=== PATIENT | female | born 1990 | race Caucasian/White ===

== ENCOUNTER → 2019-09-14 | Outpatient (REF) | payer OTHER ==
[2019-09-14 17:57] LABS: BASO # 0.1 10^3/uL (0.0-0.2); BASO % 0.6 % (0.0-1.0); EOS # 0.1 10^3/uL (0.0-0.5); EOS % 1.4 % (0.0-3.0); HEMATOCRIT 47.6 % (36.0-47.0); HEMOGLOBIN 15.1 g/dl (12.0-15.5); LYMPH # 2.8 10^3/uL (1.5-5.0); LYMPH % 28.2 % (24.0-44.0); MEAN CORPUSCULAR HEMOGLOBIN 28.7 pg (27.0-33.0); MEAN CORPUSCULAR HGB CONC 31.7 g/dl (32.0-36.5); MEAN CORPUSCULAR VOLUME 90.5 fl (80.0-96.0); MONO # 0.6 10^3/uL (0.0-0.8); MONO % 6.2 % (0.0-5.0); NEUTROPHILS # 6.2 10^3/uL (1.5-8.5); NEUTROPHILS % 63.1 % (36.0-66.0); PLATELET COUNT, AUTOMATED 300 10^3/uL (150-450); RED BLOOD COUNT 5.26 10^6/uL (4.00-5.40); WHITE BLOOD COUNT 9.9 10^3/uL (4.0-10.0)
[2019-09-14 18:08] LABS: ALBUMIN 3.6 GM/DL (3.2-5.2); ALT/SGPT 28 U/L (12-78); BILIRUBIN,TOTAL 0.4 MG/DL (0.2-1.0); BLOOD UREA NITROGEN 8 MG/DL (7-18); CALCIUM LEVEL 8.4 MG/DL (8.5-10.1); CARBON DIOXIDE LEVEL 27 MEQ/L (21-32); CHLORIDE LEVEL 106 MEQ/L (98-107); CHOLESTEROL LEVEL 147 MG/DL (<200); CHOLESTEROL RISK RATIO 3.972 (<5); CREATININE FOR GFR 0.66 MG/DL (0.55-1.30); FREE T4 0.98 NG/DL (0.76-1.46); GLOMERULAR FILTRATION RATE > 60.0 (>60); GLUCOSE, FASTING 89 MG/DL (70-100); HDL CHOLESTEROL 37 MG/DL (>40); LDL CHOLESTEROL 85 MG/DL (<100); NON-HDL-C 110 MG/DL; POTASSIUM SERUM 4.2 MEQ/L (3.5-5.1); SODIUM LEVEL 138 MEQ/L (136-145); TOTAL 25(OH) VITAMIN D 11.4 NG/ML (30.0-100.0); TOTAL PROTEIN 7.2 GM/DL (6.4-8.2); TRIGLYCERIDES LEVEL 126 MG/DL (<150)
== END ==
LOC: M LAB REF 16:31
PROVIDERS: ATTEND Physician Assistant
DX: Z00.00 Encounter for general adult medical examination without abnormal findings (principal); Z13.9 Encounter for screening, unspecified; F17.200 Nicotine dependence, unspecified, uncomplicated; Z68.33 Body mass index [BMI] 33.0-33.9, adult; E66.09 Other obesity due to excess calories; F41.8 Other specified anxiety disorders

== ENCOUNTER 2019-10-19 11:50 | Day surgery (SDC) | payer OTHER ==
[~2019-10-19] VITALS: Ht 170.2 cm; Wt 96.1 kg
[~2019-10-19 11:50] MED LIST: ESCI10TA2 PO; LIDOCAINE 1% MDV 20ML VIAL SQ PRN; LR 1,000 ML IV ONE; VARE05TA PO
[2019-10-19] MEDS ORDERED: propofoL 200 MG/20 ML VIAL As Ordered ONE (14:59)
[2019-10-19] MEDS ORDERED: SUGAMMADEX SODIUM 500 MG/5 ML VIAL (BRIDION) As Ordered ONE (14:59)
[2019-10-19] MEDS ORDERED: fentaNYL 100 MCG/2 ML INJECTION (J3010) As Ordered ONE (14:59)
[2019-10-19] MEDS ORDERED: ePHEDrine SULFATE 25 MG/5 ML(5MG/ML) SYRINGE As Ordered ONE (14:59)
[2019-10-19] MEDS ORDERED: ACETAMINOPHEN 1000MG 100ML IV BTL (OFIRMEV) (J0131 PER 10MG) As Ordered ONE (14:59)
[2019-10-19] MEDS ORDERED: ONDANSETRON 4MG/2ML VIAL (J2405) As Ordered ONE (14:59)
[2019-10-19] MEDS ORDERED: PHENYLephrine HCL 500 MCG/5 ML (100MCG/ML) SYRINGE (J2370) As Ordered ONE (14:59)
[2019-10-19] MEDS ORDERED: dexameTHASONE 4 MG/ML 1ML VIAL (J1100) As Ordered ONE (14:59)
[2019-10-19] MEDS ORDERED: ROCURONIUM BROMIDE 50 MG/5 ML VIAL As Ordered ONE ×2 (14:59→16:19)
[2019-10-19] MEDS ORDERED: MIDAZOLAM INJ 2 MG/2 ML VIAL (J2250) As Ordered ONE (14:59)
[2019-10-19] MEDS ORDERED: LIDOCAINE 2% INJ 100 MG/5 ML SDV (FOR ANES.) As Ordered ONE (14:59)
[2019-10-19] MEDS ORDERED: HYDROmorphone HCL 2 MG/ML 1ML VIAL (J1170) As Ordered ONE (16:00)
[2019-10-19] MEDS ORDERED: ESMOLOL INJ 100MG/10ML VIAL As Ordered ONE (16:05)
[2019-10-19] MEDS ORDERED: KETOROLAC 60 MG/2 ML VIAL (J1885) As Ordered ONE (16:19)
[2019-10-19] MEDS ORDERED: GLYCOPYRROLATE INJ 0.2 MG/ML 2 ML VIAL As Ordered ONE (17:09)
[2019-10-19] MEDS ORDERED: IBUPROFEN 600 MG TAB PO PRN (18:00)
[2019-10-19] MEDS ORDERED: PERCOCET 5MG/325MG TAB PO PRN (18:00)
[2019-10-19] MEDS ORDERED: LR 1,000 ML IV SCH ×2 (18:00)
[2019-10-19] MEDS ORDERED: fentaNYL 100 MCG/2 ML INJECTION (J3010) IV PRN (18:00)
[2019-10-19] MEDS ORDERED: NORCO, ANEXSIA 5/325MG TABLET (HYDROcodone/ACETAMINOPHEN) PO PRN (18:00)
[2019-10-19] MEDS ORDERED: ONDANSETRON 4MG/2ML VIAL (J2405) IV PRN (18:00)
--- NOTE | 2019-10-20 07:28 | RO ---
DATE OF PROCEDURE: 10/19/2019 PREOPERATIVE DIAGNOSIS: Pain, bleeding, desire for permanent sterilization by bilateral salpingectomy. POSTOPERATIVE DIAGNOSIS: Pain, bleeding, desire for permanent sterilization by bilateral salpingectomy. PROCEDURE: SURGEON: Dr. Allie Jones VISUAL EDUCATION DIRECTOR: None. ANESTHESIA: General endotracheal anesthesia. BRIEF DESCRIPTION OF PROCEDURE AND FINDINGS: Josi was brought to the operating room where sufficient general endotracheal anesthesia was induced and she was prepped, draped and positioned in the usual sterile fashion where the uterine manipulator was placed. The uterus was sounded to 9 with an endocervical cavity length of 4 giving an endometrial cavity length of 5 and that is the only measurement we had at this point, length of 5, but we subsequently measured width at 4.4, but again did not have this yet. Placed the uterine manipulator carefully with efforts made not to perforate the uterus and of course drain the bladder and then turned our attention to the abdomen. A transverse semilunar incision was made below the umbilicus with sharp and blunt dissection and were continued to the subcutaneous tissues to the level of the rectus fascia, which was transversely incised and secured with #0 Vicryl retention sutures. The peritoneum was entered under direct visualization and the Martins cannula placed and secured in place with the #0 Vicryl retention sutures. CO2 insufflation was then begun. After adequate CO2 insufflation, the peritoneal cavity was visualized. There were normal shiny peritoneal surfaces throughout. There were no excrescences, ascites, nor exudate. The ovaries, tubes, uterus, etc., were normal in appearance. A #45 Enseal was placed through the operative port and starting at the fimbriated end carefully dissected the tube away from the ovary and the pedicle. We freed the tubes to the cornu bilaterally and then with the graspers at the ready went ahead and the left tube, placed it in the anterior cul-de-sac, switched out for the graspers and rene that out the umbilical port. We did the same process on the right side. Then photographs were taken to confirm good hemostasis, etc. We then allowed the CO2 to escape the abdomen, finishing of course the laparoscopic portion of the procedure, with the instruments then removed. The #0 Vicryl retention sutures used to close the fascia and #3-0 Vicryl in a subcuticular stitch used to close the skin. There was good approximation and hemostasis in both layers and a dry sterile dressing was then applied. Attention was then turned to the ablation portion of the case. The uterine manipulator was removed and the hysteroscope placed and the endometrial cavity visualized. There was some blood in the endometrial cavity so the pictures are suboptimal, but of course this is consistent with the patient's report of excessive bleeding and pain. I did not visualize any polyps. There were normal tubal ostia. There was obviously no evidence of perforation. Curettage was carried out just to smooth out the lining and then the NovaSure ablative device was placed, again, length set at 5 and width set at 4.4, and an uncomplicated NovaSure ablation was then carried out and the procedure was then ended. Estimated blood loss for the procedure was about 5 mL. Fluid replacement was crystalloid. Specimens: Curettings and both tubes. Complications: None. Condition and Disposition: Josi tolerated the procedure well and was recovering in the recovery room in good condition.
== END 2019-10-19 20:35 | disposition home or self-care (01) ==
LOC: M SDC 11:50 → EDUNIT# 16:45 → M SDC 20:35
PROVIDERS: ATTEND Obstetrics & Gynecology
DX: Z30.2 Encounter for sterilization (principal); R10.2 Pelvic and perineal pain; N93.9 Abnormal uterine and vaginal bleeding, unspecified; K21.9 Gastro-esophageal reflux disease without esophagitis; F41.9 Anxiety disorder, unspecified; F32.9 Major depressive disorder, single episode, unspecified; G47.9 Sleep disorder, unspecified; F17.210 Nicotine dependence, cigarettes, uncomplicated; Z91.040 Latex allergy status; Z88.0 Allergy status to penicillin; Z79.899 Other long term (current) drug therapy
CPT/HCPCS: 58563; 58661; 81025; 88302; 88305; J0131; J1100; J1170; J1885; J2250; J2370; J2405; J3010

== ENCOUNTER → 2023-04-19 | Outpatient (REF) | payer OTHER ==
[~2023-04-19] MED LIST changes: +ESCI10TA16 PO; -ESCI10TA2 PO; -LIDOCAINE 1% MDV 20ML VIAL SQ PRN; -LR 1,000 ML IV ONE
[2023-04-19 17:16] LABS: HEMATOCRIT 43.8 % (36.0-47.0); HEMOGLOBIN 14.5 g/dl (12.0-15.5); MEAN CORPUSCULAR HEMOGLOBIN 29.6 pg (27.0-33.0); MEAN CORPUSCULAR HGB CONC 33.1 g/dl (32.0-36.5); MEAN CORPUSCULAR VOLUME 89.4 fl (80.0-96.0); PLATELET COUNT, AUTOMATED 365 10^3/uL (150-450); WHITE BLOOD COUNT 10.8 10^3/uL (4.0-10.0)
[2023-04-19 17:40] LABS: ALBUMIN 3.8 G/DL (3.2-5.2); ALKALINE PHOSPHATASE 89 U/L (46-116); ALT/SGPT 16 U/L (7.0-40); AST/SGOT < 8 U/L (<34); BILIRUBIN,TOTAL 0.3 MG/DL (0.3-1.2); BLOOD UREA NITROGEN 9 MG/DL (9-23); CALCIUM LEVEL 9.1 MG/DL (8.5-10.1); CARBON DIOXIDE LEVEL 27 MMOL/L (20-31); CHLORIDE LEVEL 105 MMOL/L (98-107); CHOLESTEROL LEVEL 142 MG/DL (<200); CHOLESTEROL RISK RATIO 2.86 (<5); CREATININE FOR GFR 0.59 MG/DL (0.55-1.30); GLOMERULAR FILTRATION RATE > 60.0 (>60); GLUCOSE, FASTING 85 MG/DL (60-100); HDL CHOLESTEROL 49.5 MG/DL (>40); LDL CHOLESTEROL 71.7 MG/DL (<100); NON-HDL-C 92.5 MG/DL; POTASSIUM SERUM 4.2 MMOL/L (3.5-5.1); SODIUM LEVEL 140 MMOL/L (136-145); TOTAL PROTEIN 7.2 G/DL (5.7-8.2); TRIGLYCERIDES LEVEL 104 MG/DL (<150)
[2023-04-19 17:42] LABS: THYROID STIMULATING HORMONE 1.357 uIU/ML (0.55-4.78); TOTAL 25(OH) VITAMIN D 21.6 NG/ML (20.0-100.0)
[2023-04-19 18:07] LABS: HIV 1&2 SCREEN NEGATIVE (NEGATIVE)
[2023-04-19 18:15] LABS: HEPATITIS C VIRUS ABY INDEX 0.17 INDEX (<0.8)
== END ==
LOC: M LAB REF 16:36
PROVIDERS: ATTEND Physician Assistant
DX: E03.9 Hypothyroidism, unspecified (principal); J45.20 Mild intermittent asthma, uncomplicated; E55.9 Vitamin D deficiency, unspecified; E66.9 Obesity, unspecified; Z11.59 Encounter for screening for other viral diseases; Z11.4 Encounter for screening for human immunodeficiency virus [HIV]

== ENCOUNTER → 2025-04-10 | Outpatient (REF) | payer OTHER ==
[2025-04-10 17:32] LABS: ALT/SGPT 19 U/L (7.0-40); AST/SGOT 18 U/L (<34); CALCIUM LEVEL 9.0 MG/DL (8.5-10.1); CARBON DIOXIDE LEVEL 26 MMOL/L (20-31); CHLORIDE LEVEL 104 MMOL/L (98-107); CHOLESTEROL LEVEL 172 MG/DL (<200); CHOLESTEROL RISK RATIO 3.13 (<5); CREATININE FOR GFR 0.65 MG/DL (0.55-1.30); GLOMERULAR FILTRATION RATE > 90.0 (>60); LDL CHOLESTEROL 103.1 MG/DL (<100); MAGNESIUM LEVEL 1.7 MG/DL (1.8-2.4); NON-HDL-C 117.1 MG/DL; POTASSIUM SERUM 4.4 MMOL/L (3.5-5.1); SODIUM LEVEL 141 MMOL/L (136-145); TRIGLYCERIDES LEVEL 70 MG/DL (<150)
[2025-04-10 17:33] LABS: FREE T4 1.18 NG/DL (0.89-1.76)
[2025-04-10 17:34] LABS: TOTAL 25(OH) VITAMIN D 36.0 NG/ML (20.0-100.0)
[2025-04-10 18:07] LABS: ESTIMATED AVERAGE GLUCOSE 103.0 MG/DL (60-110)
== END ==
LOC: M LAB REF 16:21
PROVIDERS: ATTEND Student in an Organized Health Care Education/Training Program
DX: R51.9 Headache, unspecified (principal); Z68.30 Body mass index [BMI] 30.0-30.9, adult; E55.9 Vitamin D deficiency, unspecified; E03.9 Hypothyroidism, unspecified; G89.29 Other chronic pain